=== PATIENT | female | born 1985 | race Caucasian/White ===

== ENCOUNTER 2023-09-05 19:27 | Emergency (ER) | payer OTHER ==
[~2023-09-05] VITALS: Ht 162.6 cm; Wt 117.0 kg
[~2023-09-05 19:27] MED LIST: LOMOTIL TABLET1 EACH PO; NAPROXEN500 MG PO; ONDANSETRON ODT4 MG PO; TRI-SPRINTEC1 EACH PO
[2023-09-05] MEDS ORDERED: AMOX TR-K CLV1 EAC1 PO (19:54)
[2023-09-05] MEDS ORDERED: AMOXICILLIN/CLAVULANATE K 875 MG HOME.PACK PO ONE (20:00)
[2023-09-05 20:02] VITALS: BP 132/110
== END 2023-09-05 20:02 | disposition home or self-care (01) ==
LOC: ED 19:27
DX: S61.451A Open bite of right hand, initial encounter (principal); S61.256A Open bite of right little finger without damage to nail, initial encounter; W55.01XA Bitten by cat, initial encounter
CPT/HCPCS: 99283